=== PATIENT | female | born 1995 | race Caucasian/White ===

== ENCOUNTER 2017-07-27 23:12 | Emergency (ER) | payer OTHER ==
[2017-07-27 23:12] VITALS: BMI 34.2
[2017-07-27 23:23] VITALS: BP 124/83; PULSE 93; TEMP 97.2; O2SAT 100
[2017-07-27] MEDS ORDERED: Lidocaine 1% Inj (20ml) ONE (23:40)
--- NOTE | 2017-07-28 00:20 | C.PDOC ---
History Of Present Illness 22 year old female presents to the ER with a complaint of a painful lump to the right axilla for the past 4 days that has been worsening. Denies trauma, fever, or Hx of similar symptoms. Time Seen by Provider: 07/27/17 23:29 Chief Complaint (Nursing): Abnormal Skin Integrity History Per: Patient History/Exam Limitations: no limitations Onset/Duration Of Symptoms: Days Current Symptoms Are (Timing): Still Present Location Of Injury: Right: Chest (Axilla) Quality Of Symptoms: Painful Recent travel outside of the [place]: No Past Medical History Reviewed: Historical Data, Nursing Documentation, Vital Signs Vital Signs: Last Vital Signs Temp 97.2 F L 07/27/17 23:16 Pulse 93 H 07/27/17 23:16 Resp 20 07/28/17 00:50 BP 124/83 07/27/17 23:16 Pulse Ox 100 07/28/17 00:32 - Medical History PMH: No Chronic Diseases - [facility] Procedures REPAIR OB LACERATION NEC (09/25/14) Family History: States: Unknown Family Hx - Social History Hx Tobacco Use: No Hx Alcohol Use: No Hx Substance Use: No - Immunization History Hx Tetanus Toxoid Vaccination: No Hx Influenza Vaccination: No Hx Pneumococcal Vaccination: No Review Of Systems Constitutional: Negative for: Fever, Chills Skin: Positive for: Other (Lump to right axilla) Physical Exam - Physical Exam Appears: Non-toxic, No Acute Distress Skin: Warm, Dry, Other (3x4cm indurated tender mass with erythema and fluctuance at center. ) Head: Atraumatic, Normacephalic Eye(s): bilateral: Normal Inspection Oral Mucosa: Moist Neurological/Psych: Oriented x3, Normal Speech ED Course And Treatment O2 Sat by Pulse Oximetry: 100 (Room air) Pulse Ox Interpretation: Normal Progress Note: Motrin administered for pain. I&D performed, patient tolerated with no difficulty, will discharge home with instructions to follow up in 2 days for wound check. - Incision & Drainage Of Abscess Anesthesia: Lidocaine 1%, With Epi Prep Used: Sterile Water Procedure: Incised W/Scalpel Blade#: (15), Drained Pus, Irrigated Cavity W/ Saline, Probed To Break Up Loculations, Packed W/Gauze (dressed) Disposition - Disposition Referrals: [facility] [Outside] Disposition: HOME/ ROUTINE Disposition Time: 00:35 Condition: GOOD Additional Instructions: Please follow up in ER in 2 days for wound check Take meds as directed Return to ER if fever, severe pain or worse worse Prescriptions: Ibuprofen [Motrin] 600 mg PO Q6H #20 tab Instructions: Abscess (ED) Forms: [employer] (Faroese) - Clinical Impression Clinical Impression: Abscess of right axilla - PA / VENTILATING ENGINEER / Resident Statement MD/DO has reviewed & agrees with the documentation as recorded. - Scribe Statement The provider has reviewed the documentation as recorded by the Scribmargaret Lugo All medical record entries made by the Ann Marieibmargaret were at my direction and personally dictated by me. I have reviewed the chart and agree that the record accurately reflects my personal performance of the history, physical exam, medical decision making, and the department course for this patient. I have also personally directed, reviewed, and agree with the discharge instructions and disposition.
[2017-07-28 00:51] VITALS: RESP 20
== END 2017-07-28 01:12 | disposition home or self-care (01) ==
LOC: C.ER 23:12
DX: L02.411 Cutaneous abscess of right axilla (principal)

== ENCOUNTER 2017-07-29 12:04 | Emergency (ER) | payer OTHER ==
[2017-07-29 12:04] VITALS: BMI 34.2
[2017-07-29 12:17] VITALS: BP 134/87; PULSE 103; RESP 20; TEMP 98.7; O2SAT 98
--- NOTE | 2017-07-29 13:32 | C.PDOC ---
History Of Present Illness 22 year old female presents to the ED for a wound check. Patient is s/p I&D of an abscess to her right arm 2 days ago. Patient changed the dressing at home and states it was bloody. Patient reports mild discomfort but denies fever, chills or drainage from the site. Time Seen by Provider: 07/29/17 12:48 Chief Complaint (Nursing): Wound Check History Per: Patient History/Exam Limitations: no limitations Onset/Duration Of Symptoms: Days Ago (2) Current Symptoms Are (Timing): Still Present Location Of Injury: Right: Arm Additional History Per: Patient Past Medical History Reviewed: Historical Data, Nursing Documentation, Vital Signs Vital Signs: Last Vital Signs Temp 98.7 F 07/29/17 12:16 Pulse 103 H 07/29/17 12:16 Resp 20 07/29/17 12:16 BP 134/87 07/29/17 12:16 Pulse Ox 98 07/29/17 18:03 - Medical History PMH: No Chronic Diseases Denies: Chronic Kidney Disease Surgical History: No Surg Hx - [facility] Procedures REPAIR OB LACERATION NEC (09/25/14) Family History: States: Unknown Family Hx - Social History Hx Tobacco Use: No Hx Alcohol Use: No Hx Substance Use: No - Immunization History Hx Tetanus Toxoid Vaccination: No Hx Influenza Vaccination: No Hx Pneumococcal Vaccination: No Review Of Systems Constitutional: Negative for: Fever, Chills Skin: Positive for: Other (wound check s/p I&D on right arm ) Physical Exam - Physical Exam Appears: Non-toxic, No Acute Distress Skin: Normal Color, Warm, Dry, Other (packing in place on right armpit) Extremity: Normal ROM, Capillary Refill (less than 2 seconds ) Neurological/Psych: Oriented x3, Normal Speech, Normal Cognition Gait: Steady ED Course And Treatment O2 Sat by Pulse Oximetry: 98 (on RA) Pulse Ox Interpretation: Normal Medical Decision Making Medical Decision Making: Progress: Packing removed and changed. Patient tolerated well with no complaints. Patient is resting comfortably, showing no signs of distress and is stable for discharge. Advised to f/u in ED within 2-3 days for packing change. Disposition Counseled Patient/Family Regarding: Diagnosis, Need For Followup - Disposition Referrals: [facility] [Outside] Disposition: HOME/ ROUTINE Disposition Time: 13:31 Condition: STABLE Additional Instructions: follow up in 2-3 days for packing change return to ER return to ER sooner if symptoms worsens or progress take pain medications as needed Instructions: Acute Wound Care (ED) Forms: [facility] (Hungarian), General Discharge Instructions - Clinical Impression Clinical Impression: Wound, Change of dressing - Scribe Statement The provider has reviewed the documentation as recorded by the Scribe (Mariam Garcia) Provider Attestation: All medical record entries made by the Scribe were at my direction and personally dictated by me. I have reviewed the chart and agree that the record accurately reflects my personal performance of the history, physical exam, medical decision making, and the department course for this patient. I have also personally directed, reviewed, and agree with the discharge instructions and disposition.
== END 2017-07-29 13:45 | disposition home or self-care (01) ==
LOC: C.ER 12:04
DX: Z51.89 Encounter for other specified aftercare (principal)

== ENCOUNTER 2017-07-31 15:19 | Emergency (ER) | payer OTHER ==
[2017-07-31 15:19] VITALS: BMI 34.2
[2017-07-31 15:47] VITALS: BP 122/80; PULSE 90; RESP 16; TEMP 98.2; O2SAT 99
--- NOTE | 2017-07-31 16:09 | C.PDOC ---
History Of Present Illness Fannie Goeloverde is a 22 year old female, with no past medical history , who presents to the emergency department for a right axilla abscess wound check after having an abscess drained on 07/27/17. Patient was in the ER on to have the wound repacked already. Patient now presents to the ER wound check. She has been taking Bactrim and denies any other medical complaints. PMD: None provided. Time Seen by Provider: 07/31/17 15:50 Chief Complaint (Nursing): Abnormal Skin Integrity History Per: Patient History/Exam Limitations: no limitations Onset/Duration Of Symptoms: Days (x5) Current Symptoms Are (Timing): Still Present Severity: None Pain Scale Rating Of: 0 Past Medical History Reviewed: Historical Data, Nursing Documentation, Vital Signs Vital Signs: Last Vital Signs Temp 98.2 F 07/31/17 15:44 Pulse 90 07/31/17 15:44 Resp 16 07/31/17 15:44 BP 122/80 07/31/17 15:44 Pulse Ox 99 07/31/17 16:20 - Medical History PMH: No Chronic Diseases Denies: Chronic Kidney Disease Surgical History: No Surg Hx - [facility] Procedures REPAIR OB LACERATION NEC (09/25/14) Family History: States: Unknown Family Hx - Social History Hx Tobacco Use: No Hx Alcohol Use: No Hx Substance Use: No - Immunization History Hx Tetanus Toxoid Vaccination: No Hx Influenza Vaccination: No Hx Pneumococcal Vaccination: No Review Of Systems Except As Marked, All Systems Reviewed And Found Negative. Skin: Positive for: Other (right axilla healing abscess) Physical Exam - Physical Exam Appears: Well, No Acute Distress Skin: Normal Color, Warm, Dry, Other (right axilla healing abscess. No purulent discharge. Wound looks clean.) Head: Atraumatic, Normacephalic Eye(s): bilateral: Normal Inspection, EOMI Neck: Normal, Normal ROM, Supple Extremity: Normal ROM, No Deformity, No Swelling Neurological/Psych: Oriented x3, Normal Speech ED Course And Treatment O2 Sat by Pulse Oximetry: 99 (RA) Pulse Ox Interpretation: Normal Medical Decision Making Medical Decision Making: Initial Impression: Wound check Initial Plan: --Discharge was removed and wound was cleaned with normal saline. Reapplied dressing with no complications. Patient tolerated it well. Patient will be discharged home. Disposition - Disposition Disposition: HOME/ ROUTINE Disposition Time: 16:19 Condition: STABLE Additional Instructions: Follow up with your PMD within 1-2 days. Return to ED if feel worse. Please finish all your antibiotic as previously instructed. Instructions: Acute Wound Care (ED) Forms: [employer] (Taiwanese) - Clinical Impression Clinical Impression: Wound check, abscess - Scribe Statement Otto Moore All medical record entries made by the Scribe were at my direction and personally dictated by me. I have reviewed the chart and agree that the record accurately reflects my personal performance of the history, physical exam, medical decision making, and the department course for this patient. I have also personally directed, reviewed, and agree with the discharge instructions and disposition.
== END 2017-07-31 16:24 | disposition home or self-care (01) ==
LOC: C.ER 15:19
DX: Z51.89 Encounter for other specified aftercare (principal)

== ENCOUNTER 2018-03-10 11:23 | Emergency (ER) | payer OTHER ==
[2018-03-10 11:29] VITALS: BMI 32.0
[2018-03-10 11:30] VITALS: BP 121/83; PULSE 108; RESP 18; TEMP 98.4; O2SAT 100
[2018-03-10] MEDS ORDERED: Lidocaine 2% Inj (20ml) INFIL ONE (11:41)
[2018-03-10] MEDS ORDERED: Tmp-Smz 800 mg-160 mg DS Tab PO STA (11:41)
[2018-03-10] MEDS ORDERED: Lidocaine 2% MPF (5 ml) Inj ONE (11:50)
--- NOTE | 2018-03-10 11:51 | C.PDOC ---
History Of Present Illness 22-year-old female with no known medical history presents to the ED complaining of a painful lump to the right axilla, developing for the past 3 days. Patient states the lump has been growing in size. She believes it is an abscess, and reports having similar lumps in the past, the last one was in 08/2017. Otherwise patient denies any associated fever, chills, or drainage from the area. Time Seen by Provider: 03/10/18 11:38 Chief Complaint (Nursing): Abnormal Skin Integrity History Per: Patient History/Exam Limitations: no limitations Onset/Duration Of Symptoms: Days Current Symptoms Are (Timing): Still Present Quality Of Symptoms: Painful, Swollen Past Medical History Reviewed: Historical Data, Nursing Documentation, Vital Signs Vital Signs: Last Vital Signs Temp 98.4 F 03/10/18 11:29 Pulse 108 H 03/10/18 11:29 Resp 18 03/10/18 12:24 BP 121/83 03/10/18 11:29 Pulse Ox 100 03/10/18 13:05 - Medical History PMH: No Chronic Diseases Denies: Chronic Kidney Disease Surgical History: No Surg Hx - [facility] Procedures REPAIR OB LACERATION NEC (09/25/14) Family History: States: Unknown Family Hx - Social History Hx Tobacco Use: No Hx Alcohol Use: No Hx Substance Use: No - Immunization History Hx Tetanus Toxoid Vaccination: No Hx Influenza Vaccination: No Hx Pneumococcal Vaccination: No Review Of Systems Except As Marked, All Systems Reviewed And Found Negative. Constitutional: Negative for: Fever, Chills Musculoskeletal: Positive for: Other (painful swelling to right axilla) Skin: Negative for: Rash, Other (drainage) Neurological: Negative for: Weakness, Numbness Physical Exam - Physical Exam Appears: Well, Non-toxic, No Acute Distress Skin: Warm, Dry, No Rash, Other (2x3 cm erythematous, fluctuant, tender mass to the right outer axilla) Head: Atraumatic, Normacephalic Eye(s): bilateral: Normal Inspection Oral Mucosa: Moist Extremity: Bilateral: Atraumatic, Normal Color And Temperature, Normal ROM Pulses: Left Radial: Normal, Right Radial: Normal Neurological/Psych: Oriented x3, Normal Speech Gait: Steady ED Course And Treatment O2 Sat by Pulse Oximetry: 100 (RA) Pulse Ox Interpretation: Normal - Incision & Drainage Of Abscess Anesthesia: Lidocaine 2% Prep Used: Sterile Water, Betadine Procedure: Incised W/Scalpel Blade#: (15), Drained Pus, Irrigated Cavity W/ Saline, Packed W/Gauze, Cultures Obtained And Sent To Lab Medical Decision Making Medical Decision Making: Impression: Abscess, right axilla Plan: * I&D performed with 2% lidocaine (see procedure note) * 1 tab Bactrim PO Progress/Updates: I&D performed without difficulty, tolerated well by patient. Patient remains afebrile, AAOx3, resting comfortably in the ED. Counseled patient regarding diagnosis and follow up instructions. Patient is medically stable and will be discharged home with Bactrim prescription. Disposition Counseled Patient/Family Regarding: Diagnosis, Need For Followup, Rx Given - Disposition Referrals: Charu Aldridge MD [Medical Doctor] - Disposition: HOME/ ROUTINE Disposition Time: 12:12 Condition: STABLE Additional Instructions: Change dressing daily Take antibiotic twice daily Follow up for wound check in few days with your doctor Prescriptions: Sulfamethoxazole/Trimethoprim [Bactrim DS 800 mg-160 mg] 1 tab PO BID #14 tab Instructions: Abscess Incision and Drainage Forms: [employer] (Amharic) - POA Present On Arrival: None - Clinical Impression Clinical Impression: Abscess of right axilla - PA / MEDICAL INSTRUMENT TECHNICIAN / Resident Statement MD/DO has reviewed & agrees with the documentation as recorded. - Scribe Statement The provider has reviewed the documentation as recorded by the Scribe (Debbie Abreu) All medical record entries made by the Scribe were at my direction and personally dictated by me. I have reviewed the chart and agree that the record accurately reflects my personal performance of the history, physical exam, medical decision making, and the department course for this patient. I have also personally directed, reviewed, and agree with the discharge instructions and disposition.
== END 2018-03-10 12:24 | disposition home or self-care (01) ==
LOC: C.ER 11:23
DX: L02.411 Cutaneous abscess of right axilla (principal)

== ENCOUNTER 2018-12-20 09:22 | Emergency (ER) | payer MEDICAID, OTHER ==
[2018-12-20 09:22] VITALS: BMI 32.2
[2018-12-20 09:30] VITALS: RESP 18
[2018-12-20] MEDS ORDERED: Sodium Chloride 0.9% 1,000 ML IV STA (09:55)
[2018-12-20 10:42] LABS: BASO % 0.4 % (0.0-2.0); EOS % 0.6 % (0.0-4.0); HEMOGLOBIN 13.2 g/dL (11.0-16.0); LYMPH # 1.9 K/uL (1.0-4.3); LYMPH % 27.2 % (20.0-40.0); MEAN CORPUSCULAR HEMOGLOBIN 30.3 pg (27.0-31.0); MEAN CORPUSCULAR HGB CONC 33.7 g/dL (33.0-37.0); MEAN PLATELET VOLUME 7.9 fL (7.2-11.7); MONO # 0.3 K/uL (0.0-0.8); MONO % 4.5 % (0.0-10.0); NEUT # 4.7 K/uL (1.8-7.0); NEUT % 67.3 % (50.0-75.0); RBC 4.35 Mil/uL (3.80-5.20); RED CELL DISTRIBUTION WIDTH 13.4 % (11.5-14.5)
[2018-12-20 11:01] LABS: ALB/GLOB RATIO 1.3 (1.0-2.1); ALBUMIN 4.2 g/dL (3.5-5.0); ALT/SGPT 27 U/L (9-52); AST/SGOT 69 U/L (14-36); BLOOD UREA NITROGEN 8 mg/dL (7-17); CALCIUM 9.1 mg/dl (8.6-10.4); GFR NON-AFRICAN AMERICAN > 60
--- NOTE | 2018-12-20 12:51 | US ---
Date of service: 12/20/2018 Indication: 10 wks with vaginal bleeding Comparison: None available Technique: Real-time transabdominal pelvic ultrasound was performed. In addition a transvaginal pelvic ultrasound was necessary to better depict pelvic anatomy. Findings: Uterus measures approximately 9.8 x 6.1 x 1.3 cm. Anteverted. Cervix length measures approximately 3.6 cm. There is a single intrauterine fetus present. 6 mm yolk sac. The gestational sac measures 3.6 cm and is compatible with a gestational age of 8 weeks 5 days. The crown-rump length measures 2.2 cm and is compatible with a gestational age of 8 weeks 6 days. 1.4 x 2.1 x 0.8 cm probable subchorionic hemorrhage. heart motion is not detected at this time. The right ovary is not visualized. The left ovary measures 2.3 x 1.5 x 2.3 cm. Blood flow is demonstrated to the left ovary. Impression: Single intrauterine with estimated gestational age 8 weeks 6 days by crown-rump length calculation. heart rate was not detected during this examination. Correlate clinically including WATER SUPERVISOR consultation, quantitative beta HCG, and follow-up ultrasound as indicated. 1.4 x 2.1 x 0.8 cm probable subchorionic hemorrhage.
--- NOTE | 2018-12-20 13:06 | C.PDOC ---
History Of Present Illness 23 year old female () who is currently 10 weeks presents to the ED for abdominal discomfort and vaginal spotting since yesterday. Reports she was seen by OBGYN 2 weeks ago and her US was normal. States she has a healthy 4 year old daughter at home that was a normal . Notes this is desirable. Denies any other symptoms. Time Seen by Provider: 12/20/18 09:27 Chief Complaint (Nursing): Female Genitourinary History Per: Patient History/Exam Limitations: no limitations Onset/Duration Of Symptoms: Days (1) Current Symptoms Are (Timing): Still Present Past Medical History Reviewed: Historical Data, Nursing Documentation, Vital Signs Vital Signs: Last Vital Signs Temp 99.1 F 12/20/18 09:27 Pulse 93 H 12/20/18 09:27 Resp 18 12/20/18 09:27 BP 127/88 12/20/18 09:27 Pulse Ox 99 12/20/18 09:27 Primary Care Provider: Andrea Burns Medical History PMH: No Chronic Diseases Denies: Chronic Kidney Disease Surgical History: No Surg Hx - [facility] Procedures REPAIR OB LACERATION NEC (09/25/14) Family History: States: No Known Family Hx - Social History Hx Tobacco Use: No Hx Alcohol Use: No Hx Substance Use: No - Immunization History Hx Tetanus Toxoid Vaccination: No Hx Influenza Vaccination: No Hx Pneumococcal Vaccination: No Review Of Systems Except As Marked, All Systems Reviewed And Found Negative. Constitutional: Negative for: Fever, Chills Cardiovascular: Negative for: Chest Pain Respiratory: Negative for: Shortness of Breath Gastrointestinal: Positive for: Abdominal Pain. Negative for: Nausea, Vomiting, Diarrhea Genitourinary: Positive for: Vaginal Bleeding. Negative for: Dysuria, Hematuria, Vaginal Discharge Musculoskeletal: Negative for: Back Pain Physical Exam - Physical Exam Appears: Non-toxic, No Acute Distress Skin: Warm, Dry, No Rash Head: Normacephalic Eye(s): bilateral: Normal Inspection, PERRL, EOMI Nose: Normal Oral Mucosa: Moist Neck: Supple Chest: Symmetrical Cardiovascular: Rhythm Regular Respiratory: Normal Breath Sounds, No Rales, No Rhonchi, No Wheezing Gastrointestinal/Abdominal: Soft, Tenderness (mild suprapubic tenderness ), No Distention, No Guarding, No Rebound Neurological/Psych: Oriented x3, Normal Speech Gait: Steady ED Course And Treatment - Laboratory Results Result Diagrams: 12/20/18 10:29 12/20/18 10:29 Lab Results: Total Bilirubin 0.6 mg/dL (0.2-1.3) 12/20/18 10:29 AST 69 U/L (14-36) H 12/20/18 10:29 ALT 27 U/L (9-52) 12/20/18 10:29 Alkaline Phosphatase 79 U/L (38-126) 12/20/18 10:29 Total Protein 7.4 g/dL (6.3-8.3) 12/20/18 10:29 Albumin 4.2 g/dL (3.5-5.0) 12/20/18 10:29 Globulin 3.2 gm/dL (2.2-3.9) 12/20/18 10: Albumin/Globulin Ratio 1.3 (1.0-2.1) 12/20/18 10:29 Beta HCG, Quant 82506.00 mIU/ML 12/20/18 10:29 O2 Sat by Pulse Oximetry: 99 (RA) Pulse Ox Interpretation: Normal - CT Scan/US OB US Other Rad Studies (CT/US): Read By Radiologist, Radiology Report Reviewed CT/US Interpretation: Accession No. : [id number]. Patient Name / ID : HENRY FOSTER / [id number]. Exam Date : 12/20/2018 11:59:52 ( Approved ). Study Comment : Sex / Age : F / 23Y. Creator : Malinda Carter MD. Dictator : Malinda Carter MD. Fiction And Nonfiction Writer Prose : Movement Assembler : Malinda Carter MD. Approver2 : Report Date : 12/20/2018 12:48:08. My Comment : . Date of service: 12/20/2018. Indication: 10 wks with vaginal bleeding. Comparison: None available. Technique: Real-time transabdominal pelvic ultrasound was performed. In addition a transvaginal pelvic ultrasound was necessary to better depict pelvic anatomy. Findings: Uterus measures approximately 9.8 x 6.1 x 1.3 cm. Anteverted. Cervix length measures approximately 3.6 cm. There is a single intrauterine fetus present. 6 mm yolk sac. The gestational sac measures 3.6 cm and is compatible with a gestational age of 8 weeks 5 days. The crown-rump length measures 2.2 cm and is compatible with a gestational age of 8 weeks 6 days. 1.4 x 2.1 x 0.8 cm probable subchorionic hemorrhage. heart motion is not detected at this time. The right ovary is not visualized. The left ovary measures 2.3 x 1.5 x 2.3 cm. Blood flow is demonstrated to the left ovary. Impression: Single intrauterine with estimated gestational age 8 weeks 6 days by crown-rump length calculation. heart rate was not detected during this examination. Correlate clinically including PRODUCT DESIGN MANAGER consultation, quantitative beta HCG, and follow-up ultrasound as indicated. 1.4 x 2.1 x 0.8 cm probable subchorionic hemorrhage. Progress Note: OB US and labs ordered. Patient treated with IV fluids. US with questionable demise. Patient was instructed to return to ED in 2 days to r epeat beta HCG and pelvic US. Disposition - Disposition Disposition: HOME/ ROUTINE Disposition Time: 14:21 Condition: STABLE Additional Instructions: Follow up with OBGYN and PMD within 1-2 days. Return to ED if feel worse. Return to ED in 2 days to repeat beta and pelvic US. Instructions: Threatened Miscarriage (DC), Bleeding With (DC) Forms: [employer] (Swiss), Work Excuse - Clinical Impression Clinical Impression: Threatened , heartbeat not heard - PA / PSYCHIATRIC RN / Resident Statement MD/DO has reviewed & agrees with the documentation as recorded. - Scribe Statement The provider has reviewed the documentation as recorded by the Ann Marieibmargaret Lance All medical record entries made by the Alicia were at my direction and personally dictated by me. I have reviewed the chart and agree that the record accurately reflects my personal performance of the history, physical exam, medical decision making, and the department course for this patient. I have also personally directed, reviewed, and agree with the discharge instructions and disposition.
[2018-12-20 13:22] VITALS: BP 113/78; PULSE 85; TEMP 98.4
[2018-12-20 14:23] VITALS: O2SAT 99
== END 2018-12-20 14:45 | disposition home or self-care (01) ==
LOC: C.ER 09:22
DX: O20.0 Threatened abortion (principal); Z3A.08 8 weeks gestation of pregnancy
CPT/HCPCS: 76805; 76817; 80053; 84702; 85025; 86850; 86900; 96360; 99284; J7030

== ENCOUNTER 2018-12-22 09:36 | Emergency (ER) | payer OTHER ==
[2018-12-22 09:37] VITALS: BMI 32.2
--- NOTE | 2018-12-22 11:24 | US ---
Date of service: 12/22/2018 Indication: repeat US Comparison: First trimester ultrasound performed 12/20 18 Technique: Transvaginal pelvic ultrasound. Findings: Uterus measures approximately 10.2 x 6.1 x 7.8 cm. Anteverted. Cervix length measures approximately 3 cm in length. Irregularly shaped gestational sac. There is a single intrauterine fetus present. 5 mm yolk sac. The gestational sac measures 3.7 cm and is compatible with a gestational age of 8 weeks 6 days. The crown-rump length measures 2.1 cm and is compatible with a gestational age of 8 weeks 5 days. heart motion is not detected. The right ovary measures 2.9 x 1.7 x 2.8 cm. The left ovary measures 2.4 x 1.6 x 2.3 cm. Blood flow was demonstrated to both ovaries. Impression: Single intrauterine with estimated gestational age 8 weeks 5 days by crown-rump length calculation. Irregular-shaped gestational sac. heart rate is not detected. Preliminary impression was provided by [employer]
[2018-12-22 12:00] VITALS: O2SAT 99
--- NOTE | 2018-12-22 12:56 | C.PDOC ---
History Of Present Illness Patient is a 23 year old female, , who presents to the ED for repeat US and bloodwork with 10 week by date. She is c/o vaginal spotting. Patient was seen in [facility] 2 days ago for the same symptoms and was noted to have no heartbeat on US and beta was drawn. She presently denies any pain, fever, dysuria. Time Seen by Provider: 12/22/18 09:50 Chief Complaint (Nursing): Medical Clearance History Per: Patient History/Exam Limitations: no limitations Onset/Duration Of Symptoms: Days (2) Current Symptoms Are (Timing): Still Present Recent travel outside of the [place]: No Additional History Per: Patient Past Medical History Reviewed: Historical Data, Nursing Documentation, Vital Signs Vital Signs: Last Vital Signs Temp 98.6 F 12/22/18 11:59 Pulse 76 12/22/18 11:59 Resp 18 12/22/18 11:59 BP 109/73 12/22/18 11:59 Pulse Ox 99 12/22/18 11:59 Primary Care Provider: Charu Aldridge Medical History PMH: No Chronic Diseases Denies: Chronic Kidney Disease Surgical History: No Surg Hx - [facility] Procedures REPAIR OB LACERATION NEC (09/25/14) Family History: States: No Known Family Hx - Social History Hx Tobacco Use: No Hx Alcohol Use: No Hx Substance Use: No - Immunization History Hx Tetanus Toxoid Vaccination: Yes Hx Influenza Vaccination: Yes Hx Pneumococcal Vaccination: No Review Of Systems Constitutional: Negative for: Fever, Chills Gastrointestinal: Negative for: Nausea, Vomiting, Diarrhea Genitourinary: Positive for: Vaginal Bleeding (spotting). Negative for: Dysuria Neurological: Negative for: Headache Physical Exam - Physical Exam Appears: Non-toxic, No Acute Distress Head: Atraumatic, Normacephalic Chest: Symmetrical, No Deformity Cardiovascular: Rhythm Regular Respiratory: No Rales, No Rhonchi, No Wheezing Gastrointestinal/Abdominal: Soft, No Tenderness, No Distention, No Guarding Neurological/Psych: Oriented x3, Other (awake alert ) ED Course And Treatment - Laboratory Results Lab Results: Beta HCG, Quant 61217.00 mIU/ML 12/22/18 10:02 O2 Sat by Pulse Oximetry: 99 (on RA) Pulse Ox Interpretation: Normal - CT Scan/US US OB Other Rad Studies (CT/US): Read By Radiologist, Radiology Report Reviewed CT/US Interpretation: ADDENDUM: Please note error in initial dictation impression. There was not a preliminary report performed. Case was discussed with Dr. Pardo on 12/22/18 at 12:09 p.m.. [ Addendum Report Added by Malinda Carter MD at 12/22/2018 12:10:28 ]. Impression: Single intrauterine with estimated gestational age 8 weeks 5 days by crown-rump length calculation. Irregular-shaped gestational sac. heart rate is not detected. Preliminary impression was provided by [facility]. Medical Decision Making Medical Decision Making: Plan: US OB Transvaginal Labs Repeat US same findings. Decreasing Beta. Patient was to discharge and follow up with OBGYN. As per patient's family, they wanted to speak to OBGYN. Dr. Figueroa was contacted. Dr. Figueroa at bedside. Recommending methergine 0.2 mg PO tid X 3 days. Disposition - Disposition Disposition: HOME/ ROUTINE Disposition Time: 12:54 Condition: STABLE Prescriptions: Ibuprofen [Motrin] 600 mg PO TID #9 tab Methylergonovine [Methergine] 0.2 mg PO TID #9 tab Instructions: Miscarriage (DC) Forms: [facility] (French), Gen Discharge Inst French - POA Present On Arrival: None - Clinical Impression Clinical Impression: heartbeat not heard, demise, Missed - Scribe Statement The provider has reviewed the documentation as recorded by the Alicia Song All medical record entries made by the Scribe were at my direction and personally dictated by me. I have reviewed the chart and agree that the record accurately reflects my personal performance of the history, physical exam, medical decision making, and the department course for this patient. I have also personally directed, reviewed, and agree with the discharge instructions and disposition.
[2018-12-22 13:12] VITALS: BP 110/78; PULSE 82; RESP 16; TEMP 98.7
== END 2018-12-22 13:19 | disposition home or self-care (01) ==
LOC: C.ER 09:36
DX: O02.1 Missed abortion (principal)

== ENCOUNTER 2018-12-28 06:20 | Emergency (ER) | payer OTHER | END 2018-12-28 11:07 | disposition short-term general hospital (02) | LOC: C.ER 06:20 ==